=== PATIENT | female | born 1970 | race Caucasian/White ===

== ENCOUNTER → 2019-07-01 | Outpatient (CLI) | payer OTHER | LOC: SJCVCIMAG 10:36 | DX: Z00.6 Encounter for examination for normal comparison and control in clinical research program (principal) ==

== ENCOUNTER → 2020-06-26 | Outpatient (CLI) | payer OTHER | LOC: SJCVCIMAG 10:47 | PROVIDERS: ATTEND Internal Medicine Nephrology | DX: Z00.6 Encounter for examination for normal comparison and control in clinical research program (principal); I08.1 Rheumatic disorders of both mitral and tricuspid valves; I10 Essential (primary) hypertension ==